=== PATIENT | male | born 1985 | race African-American/Black ===

== ENCOUNTER 2021-01-18 19:03 | Emergency (ER) | payer SELFPAY ==
[2021-01-18] VITALS (7 sets, daily range): BP systolic 101–128; BP diastolic 68–86; PULSE 72–87; RESP 11–16; TEMP 37.1; O2SAT 97–100
--- NOTE | ~2021-01-18 | CT_ITS ---
EXAMINATION: CT brain wo con EXAM DATE: 01/18/2021 22:58 INDICATION: Syncope, found unresponsive. TECHNIQUE: Spiral CT of the head was performed without contrast. Axial, coronal and sagittal images were reviewed. The dose-length product (DLP) for this examination was 327.79 mGy-cm. The exposure w as tailored according to patient size, and iterative reconstruction (ASIR) was used as additional dos e reduction technique. There is no prior study for comparison. FINDINGS: There is no acute intraparenchymal hemorrhage. No evidence of intraparenchymal brain mass lesion. No evidence of acute infarction. There is no mass effect or midline shift. The ventricles are normal in size. There are no extra-axial collections. There are no acute calvarial fractures. T he orbits are unremarkable. Soft tissue is unremarkable. The visualized sinuses and mastoid air roberta ls are well aerated. IMPRESSION: 1. No acute intracranial findings. Reviewed, dictated and finalized at location G.
--- NOTE | ~2021-01-18 | XR_ITS ---
EXAMINATION: XR chest 1V portable EXAM DATE: 01/18/2021 21:52 INDICATION: Syncope. TECHNIQUE: Portable AP frontal chest x-ray was obtained. There is no prior study for comparison. FINDINGS: The lungs are clear. There are no pleural effusions. The cardiomediastinal silhouette is within normal limits. There is no pneumothorax suspected. The bones and soft tissues are unremarkab le. IMPRESSION: No acute cardiopulmonary findings. Reviewed, dictated and finalized at location G.
--- NOTE | ~2021-01-18 | CT_ITS ---
EXAMINATION: CT cervical spine wo con EXAM DATE: 01/18/2021 22:58 INDICATION: Found unresponsive. Syncope. TECHNIQUE: Spiral CT of the cervical spine was performed without contrast. Axial images were reviewe d. Coronal and sagittal reformatted images cervical spine were also reviewed. The dose-length produc t (DLP) for this examination was 327.79 mGy-cm. The exposure was tailored according to patient size (auto mA exposure control), and iterative reconstruction (ASIR) was used as additional dose reduction technique. There is no prior study for comparison. FINDINGS: There is no evidence of acute cervical fracture. The odontoid process is intact. Pre-dens space is normal. Prevertebral soft tissue is normal. There are no soft tissue abnormalities identi fied. There is no disc space widening or traumatic vertebral body subluxation suspected. Vertebral body and disc heights are well-maintained. A detailed level by level evaluation of spondylosis can be added as addendum if requested. IMPRESSION: No acute cervical fracture. Reviewed, dictated and finalized at location G. IMPRESSION: No acute cervical fracture.
[2021-01-18 19:18] LABS: Glucose Point of Care 292 mg/dl (65-105)
[2021-01-18 19:52] LABS: Basophils Absolute Auto 0.1 K/mm3 (0.0-0.1); Basophils Percent Auto 0.9 % (0.2-1.2); Eosinophils Percent Auto 0.4 % (0-4.4); Hematocrit 39.6 % (42.0-52.0); Hemoglobin 12.8 g/dL (14.0-18.0); Immature Granulocyte Absolute 0.02 K/mm3 (0.00-0.031); Immature Granulocyte Percent A 0.4 % (0-0.5); Lymphocytes Absolute Auto 1.24 K/mm3 (0.9-3.2); Lymphocytes Percent Auto 22.4 % (18.3-44.2); Mean Corpuscular HGB Conc 32.3 g/dl (32-36); Mean Corpuscular Volume 74.2 fl (80-100); Mean Platelet Volume 10.3 fl (7.4-10.4); Monocytes Absolute Auto 0.2 K/mm3 (0.1-0.6); Monocytes Percent Auto 3.1 % (2.6-8.5); Neutrophils Percent Auto 72.8 % (45.5-73.1); Platelet Count Result 267 k/mm3 (150-375); Red Blood Count 5.34 M/mm3 (4.6-6.20); Red Cell Distribution Width 14.7 % (11.5-14.5); White Blood Count 5.5 K/mm3 (4.5-10.0)
[2021-01-18 20:09] LABS: Add Urine Microscopic? YES; Appearance Urine Clear (Clear); Bilirubin Urine Negative (Negative); Blood Urine Negative (Negative); Color Urine Straw (Yellow); Glucose Urine UA 2+ mg/dL (Negative); Ketones Urine 1+ mg/dL (Negative); Leukocyte Esterase Ur Negative LEU/UL (Negative); Mucus Urine Rare /lpf; Nitrate Urine Negative (Negative); Protein Urine Negative (Negative); RBC Urine 0-2 /hpf (0-2); Specific Grav Ur 1.009 (1.001-1.035); Squamous Epithelial Cell Urine Rare /hpf (Few); Urobilinogen Urine Negative mg/dL (<2.0); WBC Urine 0-3 /hpf
[2021-01-18 20:10] LABS: Anion Gap 16 mmol/L (8-16); Blood Urea Nitrogen 17 mg/dL (9-20); Calcium 8.6 mg/dL (8.4-10.2); Carbon Dioxide 18 mmol/L (22-30); Chloride 105 mmol/L (98-107); Estimated Glomerular Filt Rate > 60; Glucose 254 mg/dL (65-110); Potassium 3.5 mmol/L (3.4-5.0); Sodium 139 mmol/L (137-145)
--- NOTE | 2021-01-18 20:31 | PC.NURSE ---
vrbo erp buitrago 1L NS Bolus
[2021-01-18] MEDS: SODIUM CHLORIDE 0.9% IV 1,000 ML 999 ML IV CONT ×2 (21:10→21:55)
--- NOTE | 2021-01-18 21:41 | ED.RECABL ---
HPI - Recheck/Abnormal Lab/Rx General Chief Complaint: Recheck/Abnormal Lab/Rx Stated Complaint: passed out on sidewalk Time Seen by Provider: 01/18/21 20:55 Source: patient and RN notes reviewed Mode of arrival: EMS Limitations: intoxication History of Present Illness HPI narrative: This is a 35 year old male who presents for evaluation of alcohol intoxication. He presented via EMS because he was found unresponsive on sidewalk with alcohol next to him. EMS found patient to have blood sugar of 50 so he was given D10 in route to hospital. Patient is not completely cooperative with history. He will state his name but he will tell his age and place. He does states he does not drink on a daily basis but he drinks when he is upset. He states he was upset today. He denies drug use. He denies any pain or injury. Related Data Home Medications Medication Instructions Recorded Confirmed Unable to Obtain Home Medications 01/18/21 01/18/21 Allergies Allergy/AdvReac Type Severity Reaction Status Date / Time Unable to Assess Allergy Verified 01/18/21 22:02 Review of Systems Review of Systems: All systems reviewed & are unremarkable except as noted in HPI and below PMFSH Past Medical History Medical History (Updated 01/19/21 @ 04:07 by Makayla Spangler MD) Patient denies medical problems Surgical History Surgical History (Updated 01/18/21 @ 21:45 by Makayla Spangler MD) No pertinent past surgical history Social History Social History (Updated 01/18/21 @ 21:45 by Makayla Spangler MD) Smoking status: Never smoker Alcohol intake: current Substance use: never Exam Const: Other: sleeping but arousable to verbal, oriented to person HENMT: Head: normocephalic and atraumatic Face and sinus: face symmetric Mouth: Yes malodorous breath Teeth and gingiva: poor dentition Eyes: Pupils: Equal, round and reactive pupils present EOM: EOMs intact bilaterally Chest: Chest palpation & inspection: normal inspection of the chest Resp: Effort & Inspection: normal respiratory effort and no retractions Auscultation: clear to auscultation bilaterally Cardio: Rate: regular rate Rhythm: regular rhythm Heart sounds: no murmurs GI: Auscultation: normal bowel sounds Other: nontender Skin: General skin exam: normal color Rashes: no rashes Neuro: General: patient oriented x3, moves all extremities and CN's II-XI intact bilaterally Psych: Mental Status: mental status grossly normal Affect: normal affect Course Reevaluation(s) Reevaluation #1: PAtient walked out of ER to smoke. He was ambulatory with steady gait. PAtient was able to eat a meal and he has maintained his blood sugar. Date: 01/19/21 Time: 04:06 Vital Signs Vital signs: Vital Signs Temperature 98.7 F 01/18/21 19:03 Pulse Rate 86 01/18/21 19:03 Respiratory Rate 16 01/18/21 19:03 Blood Pressure 101/68 01/18/21 19:03 Pulse Oximetry 97 01/18/21 19:03 Temperature 98.7 F 01/18/21 19:03 Pulse Rate 72 01/19/21 05:04 Respiratory Rate 18 01/19/21 05:04 Blood Pressure 118/67 01/19/21 05:04 Pulse Oximetry 99 01/19/21 05:04 MDM - Recheck/Abnormal Lab/Rx Lab Data Attestation: I reviewed the patient's lab results. Result diagrams: 01/18/21 19:47 01/18/21 19:47 Labs: Lab Results 01/18/21 01/18/21 01/18/21 Range/Units 19:16 19:47 19:47 WBC 5.5 (4.5-10.0) K/mm3 RBC 5.34 (4.6-6.20) M/mm3 Hgb 12.8 L (14.0-18.0) g/dL Hct 39.6 L (42.0-52.0) % MCV 74.2 L (80-100) fl MCH 24.0 L (26-34) pg MCHC 32.3 (32-36) g/dl RDW 14.7 H (11.5-14.5) % Plt Count 267 (150-375) k/mm3 MPV 10.3 (7.4-10.4) fl Immature Gran % (Auto) 0.4 (0-0.5) % Neut % (Auto) 72.8 (45.5-73.1) % Lymph % (Auto) 22.4 (18.3-44.2) % [place] % (Auto) 3.1 (2.6-8.5) % Eos % (Auto) 0.4 (0-4.4) % Baso % (Auto) 0.9 (0.2-1.2) % Lymph # (Auto) 1.2
--- NOTE | 2021-01-18 21:42 | ECG_ITS ---
Measurements Intervals [place] Rate: 71 P: 79 NE: 179 QRS: 67 QRSD: 106 T: 75 QT: 384 QTc: 419 Interpretive Statements SINUS RHYTHM INCOMPLETE RIGHT BUNDLE BRANCH BLOCK BASELINE WANDER- V6 BORDERLINE ECG Electronically Signed On 01-19-2021 7:01:02 CDT by Tiago Allison D.O.
[2021-01-18 22:08] LABS: Glucose Point of Care 113 mg/dl (65-105)
[2021-01-18 22:34] LABS: Alveolar/Arterial O2 Gradient 19.8 mmHg; Base Excess ABG -4.5 mEq/l (+/-2.0); Carboxyhemoglobin 7.1 % THb (0-2.0); Fractional Inspired Oxygen 21 %; HCO3 ABG 21.3 mEq/l (22.0-26.0); Methemoglobin ABG 0.3 %THb (0-1.5); Oxygen Content ABG 16.4 %vol (16.0-22.0); Oxyhemoglobin 87.8 % THb (90.0-100.0); PCO2 ABG 41.9 mmHg (35.0-45.0); PO2 ABG 79.8 mmHg (80.0-100.0); Reduced Hemoglobin 4.8 %THb (0-5.0); Total Hemoglobin 13.2 g/dL (12.0-18.0); pH ABG 7.324 (7.350-7.450)
[2021-01-18 22:35] LABS: Modified Allen's Test Pass; Site Drawn LEFT RADIAL
[2021-01-18 22:36] LABS: Device ROOM AIR
[2021-01-19 00:29] LABS: Glucose Point of Care 156 mg/dl (65-105)
[2021-01-19 01:11] VITALS: BP 113/66; PULSE 73; O2SAT 97
[2021-01-19 02:14] LABS: Glucose Point of Care 104 mg/dl (65-105)
[2021-01-19 02:51] VITALS: BP 103/59; PULSE 71; RESP 18; O2SAT 97
[2021-01-19 04:38] LABS: Glucose Point of Care 94 mg/dl (65-105)
[2021-01-19 05:04] VITALS: BP 118/67; PULSE 72; RESP 18; O2SAT 99
[2021-01-28 12:34] LABS: Ethanol 348 mg/dL (<10)
== END 2021-01-19 05:36 | disposition home or self-care (01) ==
PROVIDERS: Emergency Medicine; Emergency Provider General Practice
DX: F10.129 Alcohol abuse with intoxication, unspecified (principal); E16.2 Hypoglycemia, unspecified; I45.10 Unspecified right bundle-branch block; Y90.8 Blood alcohol level of 240 mg/100 ml or more
CPT/HCPCS: 36415; 36600; 70450; 71045; 72125; 80048; 80307; 81001; 82375; 82805; 82948; 83050; 85025; 93005; 96361; 99284; J7030

== ENCOUNTER 2021-02-23 18:03 | Emergency (ER) | payer SELFPAY ==
[2021-02-23] VITALS (22 sets, daily range): BP systolic 88–121; BP diastolic 54–95; PULSE 68–86; RESP 14–22; TEMP 36.4; O2SAT 94–100
--- NOTE | 2021-02-23 18:30 | PC.NURSE ---
Pt pulled out his IV, sleeping at this time.
--- NOTE | 2021-02-23 18:40 | PC.NURSE ---
Pt placed on bed alarm, nonsensical speech. Admits to drinking today, intermittently drowsy
--- NOTE | 2021-02-23 19:16 | ED.GENADULT ---
HPI - General Adult General Chief complaint: Overdose Stated complaint: etoh Time Seen by Provider: 02/23/21 19:04 Source: RN notes reviewed History of Present Illness HPI narrative: Patient presents to emergency department via EMS for alcohol intoxication. The patient was found lying [place] the floor [place] the police station initially unresponsive patient presented awake and alert x3 with some mild slurred speech found to have vodka in his bag patient states he has been drinking all day when asked patient what he drinks he states he drinks all of the alcohol in large amounts patient denies any other drug use he denies any recent illness denies fevers or chills chest pain shortness of breath or any other symptom Related Data Home Medications Medication Instructions Recorded Confirmed Unable to Obtain Home Medications 01/18/21 01/18/21 Allergies Allergy/AdvReac Type Severity Reaction Status Date / Time Unable to Assess Allergy Verified 01/18/21 22:02 Review of Systems Review of Systems: Gen.: Denies fevers or chills Eyes: Denies eye pain or visual change ENT: Denies congestion Respiratory: Denies shortness of breath or cough CV: Denies chest pain or palpitations GI: Denies abdominal pain nausea, emesis or diarrhea Musculoskeletal: Denies back pain or muscle pain Neuro: See HPI Skin: Denies rash Except as documented, all other systems reviewed and negative PMFSH Past Medical History Medical History Patient denies medical problems Surgical History Surgical History (Updated 01/18/21 @ 21:45 by Makayla Spangler MD) No pertinent past surgical history Social History Social History Smoking status: Never smoker Alcohol intake: current Substance use: never Exam Narrative: APPEARANCE: No acute distress, nontoxic, resting in bed EYES: EOMI HEENT: Normocephalic, atraumatic, OMM RESPIRATORY: No respiratory distress Clear to auscultation bilaterally with no rhonchi wheezing or rales. CARDIOVASCULAR: Regular rate and rhythm without murmurs rubs or gallops. ABDOMINAL: Soft, nontender, nondistended, no rebound or guarding MUSCULOSKELETAl: Moves all extremities. No clubbing, cyanosis or edema. NEURO: Awake and alert x 3 Following commands, speech normal, no focal deficits SKIN:: Warm, dry. No rashes lesions or abrasions PSYCHIATRIC: Normal affect/mood, Course Course Emergency Course: Patient is now awake and alert x3 able to get up and ambulate with multi Vital Signs Vital signs: Vital Signs Temperature 97.6 F 02/23/21 18:15 Pulse Rate 69 02/23/21 18:15 Respiratory Rate 16 02/23/21 18:15 Blood Pressure 105/87 02/23/21 18:15 Pulse Oximetry 98 02/23/21 18:15 Temperature 97.6 F 02/23/21 18:15 Pulse Rate 79 02/24/21 01:45 Respiratory Rate 18 02/24/21 01:45 Blood Pressure 104/84 02/24/21 01:45 Pulse Oximetry 98 02/24/21 01:45 Medical Decision Making Vital Signs Vital Signs: Vital Signs Temperature 97.6 F 02/23/21 18:15 Pulse Rate 69 02/23/21 18:15 Respiratory Rate 16 02/23/21 18:15 Blood Pressure 105/87 02/23/21 18:15 Pulse Oximetry 98 02/23/21 18:15 Temperature 97.6 F 02/23/21 18:15 Pulse Rate 79 02/24/21 01:45 Respiratory Rate 18 02/24/21 01:45 Blood Pressure 104/84 02/24/21 01:45 Pulse Oximetry 98 02/24/21 01:45 Lab Data Result diagrams: 02/23/21 20:16 02/23/21 20:16 Labs: Lab Results 02/23/21 02/23/21 02/23/21 Range/Units 19:36 20:16 20:16 WBC 5.9 (4.5-10.0) K/mm3 RBC 5.61 (4.6-6.20) M/mm3 Hgb 13.9 L (14.0-18.0) g/dL Hct 43.9 (42.0-52.0) % MCV 78.3 L (80-100) fl MCH 24.8 L (26-34) pg MCHC 31.7 L (32-36) g/dl RDW 18.2 H (11.5-14.5) % Plt Count 356 (150-375) k/mm3 MPV 10.5 H (7.4-10.4) fl Immature Gran % (Auto) 0.2 (0-0.5)
--- NOTE | 2021-02-23 19:39 | PC.NURSE ---
bedside glucose 69, MD aware. Pt given turkey sandwich box per
[2021-02-23 19:59] LABS: Glucose Point of Care 69 mg/dl (65-105)
[2021-02-23 20:22] LABS: Basophils Absolute Auto 0.1 K/mm3 (0.0-0.1); Basophils Percent Auto 1.4 % (0.2-1.2); Eosinophils Absolute Auto 0.1 K/mm3 (0-0.3); Eosinophils Percent Auto 2.4 % (0-4.4); Hematocrit 43.9 % (42.0-52.0); Hemoglobin 13.9 g/dL (14.0-18.0); Immature Granulocyte Absolute 0.01 K/mm3 (0.00-0.031); Immature Granulocyte Percent A 0.2 % (0-0.5); Lymphocytes Percent Auto 59.6 % (18.3-44.2); Mean Corpuscular HGB Conc 31.7 g/dl (32-36); Mean Corpuscular Hemoglobin 24.8 pg (26-34); Mean Corpuscular Volume 78.3 fl (80-100); Mean Platelet Volume 10.5 fl (7.4-10.4); Monocytes Absolute Auto 0.2 K/mm3 (0.1-0.6); Monocytes Percent Auto 3.4 % (2.6-8.5); Neutrophils Absolute Auto 1.9 K/mm3 (1.3-6.7); Platelet Count Result 356 k/mm3 (150-375); Red Blood Count 5.61 M/mm3 (4.6-6.20); Red Cell Distribution Width 18.2 % (11.5-14.5); White Blood Count 5.9 K/mm3 (4.5-10.0)
[2021-02-23 20:33] LABS: Alanine Aminotransferase 16 U/L (4-50); Albumin Level 4.6 g/dL (3.5-5.1); Alkaline Phosphatase 105 U/L (38-126); Anion Gap 14 mmol/L (8-16); Aspartate Amino Transferase 30 U/L (17-59); Bilirubin,Total 0.2 mg/dL (0.2-1.3); Blood Urea Nitrogen 7 mg/dL (9-20); Carbon Dioxide 22 mmol/L (22-30); Chloride 105 mmol/L (98-107); Estimated Glomerular Filt Rate > 60; Glucose 79 mg/dL (65-110); Potassium 3.9 mmol/L (3.4-5.0); Sodium 141 mmol/L (137-145)
[2021-02-23 21:03] LABS: Glucose Point of Care 81 mg/dl (65-105)
[2021-02-23 21:10] LABS: Ethanol 412 mg/dL (<10)
--- NOTE | 2021-02-23 22:54 | PC.NURSE ---
MD aware of low BP. Patient sleeping on his side, breathing unlabored. No new orders at this time
[2021-02-24 01:45] VITALS: BP 104/84; PULSE 79; RESP 18; O2SAT 98
--- NOTE | 2021-02-24 01:45 | PC.NURSE ---
0140 Patient awake, ambulates to bathroom with a steady gait. Patient a/ox3. ERP notified.
[2021-02-24] MEDS: NICOTINE (*PBKC) 21 MG PATCH 1 PATCH TRANSDERM (01:50)
== END 2021-02-24 07:12 | disposition home or self-care (01) ==
PROVIDERS: Emergency Provider Emergency Medicine
DX: F10.129 Alcohol abuse with intoxication, unspecified (principal); Y90.8 Blood alcohol level of 240 mg/100 ml or more
CPT/HCPCS: 36415; 80053; 80307; 82948; 85025; 99283; A9270

== ENCOUNTER 2021-02-25 02:11 | Emergency (ER) | payer SELFPAY ==
[2021-02-25 02:20] VITALS: BP 154/113; PULSE 67; RESP 16; TEMP 37.1; O2SAT 99
[2021-02-25] MEDS: SODIUM CHLORIDE 0.9% IV 1,000 ML 999 ML IV CONT (02:42)
[2021-02-25 02:44] LABS: Basophils Absolute Auto 0.1 K/mm3 (0.0-0.1); Basophils Percent Auto 1.4 % (0.2-1.2); Eosinophils Absolute Auto 0.1 K/mm3 (0-0.3); Eosinophils Percent Auto 1.4 % (0-4.4); Hematocrit 38.8 % (42.0-52.0); Hemoglobin 12.7 g/dL (14.0-18.0); Lymphocytes Absolute Auto 2.27 K/mm3 (0.9-3.2); Lymphocytes Percent Auto 63.4 % (18.3-44.2); Mean Corpuscular HGB Conc 32.7 g/dl (32-36); Mean Corpuscular Hemoglobin 24.4 pg (26-34); Mean Corpuscular Volume 74.6 fl (80-100); Monocytes Absolute Auto 0.2 K/mm3 (0.1-0.6); Monocytes Percent Auto 6.1 % (2.6-8.5); Neutrophils Percent Auto 27.7 % (45.5-73.1); Platelet Count Result 346 k/mm3 (150-375); Red Cell Distribution Width 16.5 % (11.5-14.5); White Blood Count 3.6 K/mm3 (4.5-10.0)
[2021-02-25 02:52] LABS: Add Urine Microscopic? YES; Appearance Urine Clear (Clear); Bilirubin Urine Negative (Negative); Blood Urine Negative (Negative); Color Urine Yellow (Yellow); Glucose Urine UA Negative (Negative); Ketones Urine Negative (Negative); Leukocyte Esterase Ur Negative LEU/UL (Negative); Mucus Urine Rare /lpf; Nitrate Urine Negative (Negative); Protein Urine 1+ mg/dL (Negative); Specific Grav Ur 1.028 (1.001-1.035); Squamous Epithelial Cell Urine Rare /hpf (Few)
[2021-02-25 03:01] LABS: Ethanol 189 mg/dL (<10)
[2021-02-25 03:03] LABS: Alanine Aminotransferase 16 U/L (4-50); Albumin Level 4.5 g/dL (3.5-5.1); Alkaline Phosphatase 107 U/L (38-126); Anion Gap 10 mmol/L (8-16); Aspartate Amino Transferase 31 U/L (17-59); Bilirubin,Total 0.3 mg/dL (0.2-1.3); Blood Urea Nitrogen 8 mg/dL (9-20); Calcium 9.1 mg/dL (8.4-10.2); Carbon Dioxide 28 mmol/L (22-30); Chloride 105 mmol/L (98-107); Creatine Kinase 249 U/L (55-170); Estimated Glomerular Filt Rate > 60; Glucose 89 mg/dL (65-110); Lipase 76 U/L (23-300); Potassium 3.9 mmol/L (3.4-5.0); Sodium 143 mmol/L (137-145)
[2021-02-25 04:38] VITALS: BP 142/88; PULSE 62; RESP 18; O2SAT 99
--- NOTE | 2021-02-25 04:46 | ED.GENADULT ---
HPI - General Adult General Chief complaint: Abdominal Pain Stated complaint: abd pain Time Seen by Provider: 02/25/21 02:14 Source: RN notes reviewed History of Present Illness HPI narrative: Patient presents emergency department from home via EMS for abdominal pain patient states he was at work earlier this evening and began to feel hot he states that time he went to the work van and laid down and slept for several hours he states he awoke and felt like he is to be nauseous with some abdominal pain described as cramping and vomited x1 states the following that EMS had been called by his coworkers he states that at this time he feels fine has no complaints denies any fevers or chills chest pain shortness of breath denies any current abdominal pain nausea or any other symptoms. The patient denies drinking any alcohol since he was in the emergency department yesterday Related Data Home Medications Medication Instructions Recorded Confirmed Unable to Obtain Home Medications 01/18/21 01/18/21 Allergies Allergy/AdvReac Type Severity Reaction Status Date / Time Unable to Assess Allergy Verified 01/18/21 22:02 Review of Systems Review of Systems: Gen.: Denies fevers or chills ENT: Denies congestion Respiratory: Denies shortness of breath or cough CV: Denies chest pain or palpitations GI: See HPI Musculoskeletal: Denies back pain or muscle pain Neuro: Denies numbness, tingling, weakness or focal weakness Skin: Denies rash Except as documented, all other systems reviewed and negative [facility] Past Medical History Medical History Patient denies medical problems Surgical History Surgical History (Updated 01/18/21 @ 21:45 by Makayla Spangler MD) No pertinent past surgical history Social History Social History Smoking status: Never smoker Alcohol intake: current Substance use: never Exam Narrative: APPEARANCE: No acute distress, nontoxic, resting in bed EYES: EOMI HEENT: Normocephalic, atraumatic, OMM RESPIRATORY: No respiratory distress Clear to auscultation bilaterally with no rhonchi wheezing or rales. CARDIOVASCULAR: Regular rate and rhythm without murmurs rubs or gallops. ABDOMINAL: Soft, nontender, nondistended, no rebound or guarding MUSCULOSKELETAl: Moves all extremities. No clubbing, cyanosis or edema. NEURO: Awake and alert. Following commands, speech normal, no focal deficits SKIN:: Warm, dry. No rashes lesions or abrasions PSYCHIATRIC: Normal affect/mood, Course Course Emergency Course: Reviewed old records from yesterday Patient drank water in ED with no emesis Discussed with patient results of workup and diagnosis. Discussed need for follow-up with primary care, proper use of medication, and reasons to return to the emergency department. Patient understands and agrees to current treatment plan Vital Signs Vital signs: Vital Signs Temperature 98.7 F 02/25/21 02:20 Pulse Rate 67 02/25/21 02:20 Respiratory Rate 16 02/25/21 02:20 Blood Pressure 154/113 H 02/25/21 02:20 Pulse Oximetry 99 02/25/21 02:20 Temperature 98.7 F 02/25/21 02:20 Pulse Rate 68 02/25/21 05:54 Respiratory Rate 18 02/25/21 05:54 Blood Pressure 123/85 02/25/21 05:54 Pulse Oximetry 100 02/25/21 05:54 Medical Decision Making Vital Signs Vital Signs: Vital Signs Temperature 98.7 F 02/25/21 02:20 Pulse Rate 67 02/25/21 02:20 Respiratory Rate 16 02/25/21 02:20 Blood Pressure 154/113 H 02/25/21 02:20 Pulse Oximetry 99 02/25/21 02:20 Temperature 98.7 F 02/25/21 02:20 Pulse Rate 68 02/25/21 05:54 Respiratory Rate 18 02/25/21 05:54 Blood Pressure 123/85 02/25/21 05:54 Pulse Oximetry 100 02/25/21 05:54 Lab Data Result diagrams: 02/25/21 02:32 02/25/21 02:32 Labs: Lab Results 02/25/21 02/25/21 02/25/21 Rang
[2021-02-25 05:54] VITALS: BP 123/85; PULSE 68; RESP 18; O2SAT 100
[2021-02-25 07:13] VITALS: BP 147/95; PULSE 82; RESP 15; O2SAT 97
== END 2021-02-25 07:14 | disposition home or self-care (01) ==
PROVIDERS: Emergency Provider Emergency Medicine
DX: R11.2 Nausea with vomiting, unspecified (principal); F10.129 Alcohol abuse with intoxication, unspecified; Y90.6 Blood alcohol level of 120-199 mg/100 ml
CPT/HCPCS: 36415; 80053; 80307; 81001; 82550; 83690; 85025; 87086; 96360; 99283; J7030